=== PATIENT | male | born 1990 | race Caucasian/White ===

== ENCOUNTER → 2022-09-06 09:07 | Outpatient (CLI) | payer OTHER, SELFPAY ==
[2022-09-06 10:09] LABS: COVID-19 CEPHEID 4-PLEX PCR Negative (Negative); Influenza A - CEPHEID Flu A NEGATIVE (NEGATIVE); Influenza B - CEPHEID Flu B NEGATIVE (NEGATIVE); Respiratory Syncytial Virus Negative (Negative)
== END ==
PROVIDERS: Visit Provider Nurse Practitioner Family
DX: R05.9 Cough, unspecified (principal)
CPT/HCPCS: 0241U